=== PATIENT | female | born 1955 | race Caucasian/White ===

== ENCOUNTER → 2023-11-03 13:52 | Outpatient (REF) | payer MEDICARE, BC, SELFPAY | LOC: DHCBC HW 13:52 | PROVIDERS: ATTENDING PHYSICIAN Internal Medicine Cardiovascular Disease; FAMILY PHYSICIAN Internal Medicine | DX: R00.2 Palpitations (principal); I10 Essential (primary) hypertension | CPT/HCPCS: 93306 ==

== ENCOUNTER → 2023-11-08 14:45 | Outpatient (REF) | payer MEDICARE, BC, SELFPAY | LOC: HWRAD 14:45 | PROVIDERS: ATTENDING PHYSICIAN Internal Medicine | DX: R10.12 Left upper quadrant pain (principal) | CPT/HCPCS: 74177; Q9967 ==

== ENCOUNTER 2023-12-06 21:15 | Emergency (ER) | payer MEDICARE, BC, SELFPAY ==
[2023-12-06 21:16] VITALS: BP 113/95
[2023-12-06 21:31] LABS: % Basophils 0.5 % (0-2); % Immature Granulocytes 0.3 % (0-0.5); % Lymphocytes 26.3 % (20.5-51.1); % Monocytes 12.2 % (1.7-9.3); % Neutrophils 60.7 % (42.2-75.2); Absolute Basophils 0.1 10^3/uL (0-0.2); Absolute Lymphocytes 2.4 10^3/uL (1.2-3.4); Absolute Monocytes 1.1 10^3/uL (0.1-0.6); Absolute Neutrophils 5.6 10^3/uL (1.4-6.5); Hematocrit 40.6 % (37.0-47.0); Hemoglobin 13.5 g/dL (12.0-16.0); Mean Corp Hgb Conc. 33.3 g/dL (33.0-37.0); Mean Corpuscular Hgb 28.2 pg (27.0-31.0); Mean Corpuscular Volume 84.8 fL (81.0-99.0); Mean Platelet Volume 9.8 fL (7.4-10.4); Nucleated Red Blood Cells % 0 %; Platelet Count 356 10^3/uL (130-400); Red Blood Cell Count 4.79 10^6/uL (4.20-5.40); Red Cell Dist. Width 14.3 % (11.5-14.5); White Blood Cell Count 9.3 10^3/uL (4.8-10.8)
[2023-12-06 21:57] LABS: ALT (SGPT) 17 U/L (0-35); AST (SGOT) 23 U/L (14-36); Albumin 4.3 g/dl (3.5-5.0); Alkaline Phosphatase 99 U/L (38-126); Blood Urea Nitrogen 28 mg/dl (7-17); Calcium 9.8 mg/dl (8.4-10.2); Carbon Dioxide 24 mmol/L (22-30); Chloride 102 mmol/L (98-107); Glucose 119 mg/dl (70-99); Lipase 252 U/L (23-300); Sodium 134 mmol/L (135-145); Total Bilirubin 0.4 mg/dl (0.2-1.3); Total Protein 7.1 g/dl (6.3-8.2); eGFR > 60.00
--- NOTE | 2023-12-06 22:19 | ED.GENMED ---
History of Present Illness
General
Chief Complaint: Flank Pain
Source: patient
Exam Limitations: none
Time Seen by Provider: 12/06/23 21:59
Travel History
Have you had any contact with someone who has COVID-19?: No
Do you have any symptoms of coronavirus? Fever > 100 degrees, chills, cough, shortness of breath, sore throat, loss of taste or smell, muscle aches, or headache?: No
History of Present Illness
History of Present Illness:
This is a 68 year old female that comes in with c/o right flank pain. States that she started at 7:45 with pain. States that at first she had this pinching when she urinated. Then about 20-30 min later she started with right flank pain. States that
the pain was severe. State that she was nauseated and had diarrhea over the weekend. Denies any fever, chills, chest pain, SOB, abd pain, vomiting, headache, dizziness, urinary burning.
Past History
Past History
ED Past Medical History: Cancer (Ovarian Cancer), HTN, Hypercholesterolemia and Other (Renal calculus, Spinal stenosis, Diverticulitis, Esophageal strictures, Goiter, )
ED Past Surgical History: (X 2), Gynecological (Total hysterectomy), Orthopedic (Jimbo carpal tunnel) and Other (Left Cataract)
Social History
Tobacco: Former smoker
Alcohol: Occasional
Drug: None
Personal:
Living: with family
Review of Systems
Review of Systems
All Other Systems: ROS reviewed and negative except as documented in HPI and ROS
Constitutional: Reports no symptoms; Denies fever or chills
EENT: Reports no symptoms
Respiratory: Reports no symptoms; Denies cough or trouble breathing
Cardiac: Reports no symptoms; Denies chest pain
ABD/GI: Reports nausea; Denies abdominal pain, vomiting or diarrhea
: Reports flank pain (Right sided); Denies dysuria, frequency or urgency
Skin: Reports no symptoms
Neurological: Reports no symptoms; Denies dizzy or headache
Psychiatric: Reports no symptoms
Phy Exam
General Physical Exam
General Presentation: no apparent distress
General age: appears stated age
General Skin: warm and dry
General Habitus: normal
General Mental: alert
General Hydration: appears well hydrated
ENT Exam
ENT Exam: TM's normal, pharynx normal and neck supple
Eye Exam
Eye Exam: EOMI
Cardiovascular Exam
Cardiovascular Exam: regular rate/rhythm, no edema, no murmur and normal peripheral pulses
Pulmonary Exam
Pulmonary Exam: lungs clear, no respiratory distress, no rales, chest non tender, no crackles, no rhonchi, no wheezing and no cough
Gastrointestinal Exam
Gastrointestinal Exam: normal bowel sounds, non tender, soft, no organomegaly, no pulsatile mass, non distended and cva tenderness (Slight right sided)
Musculoskeletal Exam
Musculoskeletal Exam: full ROM and no edema
Skin Exam
Skin Exam: normal color, warm/dry, no rash and no petechia
Psychiatric Exam
Psychiatric Exam: normal mood/affect
Course
Orders/Labs/Results
Orders:
Orders
12/06/23 21:23
CBC/With Diff [Complete Blood Count/With Diff] Urgent
CMP [Comprehensive Metabolic Panel] Urgent
Lipase Urgent
12/06/23 22:18
CT Abd/pel Without Iv Or Oral Urgent
Comment:
Reason For Exam: Right flank pain
0.9% Sodium Chloride 1000 ml [Nss] 1,000 ml IV BOLUS
Ketorolac [Toradol] 30 mg IV NOW STA
Ondansetron Injectable [Zofran] 4 mg IV NOW STA
12/06/23 22:38
Urinalysis Reflex To Culture Urgent
Date Specimen was Collected: 12/06/23
Time Specimen was Collected: 22:37
Urine Microscopic Reflex Cult Urgent
Urine Culture Urgent
ELYSE Source: U
Specimen Description:
Date Specimen was Collected: 12/06/23
Time Specimen was Collected: 22:37
Abnormal Lab Results
12/06/23 12/06/23
21:23 22:38
Absolute Monos (auto) 1.1 H 10^3/uL
(0.1-0.6)
Monocytes % 12.2 H %
(1.7-9.3)
Sodium 134 L mmol/L
(135-145)
BUN 28 H mg/dl
(7-17)
Glucose 119 H mg/dl
(70-99)
Ur Occult Blood Reflex 2+ A
(Negative)
Urine Bilirubin 1+ A
(Negative)
Leukocyte Esterase Rfl 1+ A
(Negative)
Urine RBC 11-15 A /HPF
(0-2)
Urine Bacteria (Reflex) Moderate A
(Negative)
12/06/23 21:23
12/06/23 21:23
Dehydration, Glucose nonfasting. Lipase normal at 252, Urine negative for infection.
Vital Signs
Initial and Last Documented VS:
Initial Vital Signs
Temp Pulse Resp BP Pulse Ox
98.1 F 80 18 113/95 99
12/06/23 21:16 12/06/23 21:16 12/06/23 21:16 12/06/23 21:16 12/06/23 21:16
Last Documented Vital Signs
Temp Pulse Resp BP Pulse Ox
98.1 F 82 19 179/99 97
12/06/23 21:16 12/06/23 23:45 12/06/23 23:45 12/06/23 23:45 12/06/23 23:45
MDM/Problems Addressed
Differential Diagnosis Includes:
Renal calculus, UTI,
MDM/Problems Addressed:
This is a 68 year old female that comes in with c/o right flank pain. States that she has pinching with urination at first and then 20-30 min later she started with right flank pain.
Will get labs. CT scan, Give IV fluids and pain medication.
Back into see patient. Explained that there is a 2mm stone that is almost to the bladder. Encourage patient to increase her water intake to 8-8oz glasses daily. Will have patient use Tylenol or ibuprofen for pain. Strain her urine and will also sent
prescription to her pharmacy. Patient to follow up with the urologist in 5-7 days. Return with increased or changing pain or fever.
Chronic conditions affecting care:
Renal calculus,
Acute Exacerbation and/or Progression of Chronic Illness:
Renal calculus
*Radiology
Radiology exam reviewed: radiology read reviewed (CT night hawk- 2mm obstructing right distal ureteral stone, just above the level of the bladder, with associated mild right hydroureteronephrosis and subtle perinephric/periureteral fat stranding.
Correlate for superimposed infection. One additional nonobstructing left renal stone. Decompressed ) and all reviewed NAD by ED Provider (CT cont- decompressed bladder. Hysterectomy. Colonic diverticulosis. NO acute bowel patholgy. Small umbilical
herniation of fat. Scattered atheromatous disease. Coronary artery calcifications. Degenerative changes of the spine and left hip joint. Several left hip joint bodies. )
*Pulse Oximetry
Patient hypoxic: no
*EKG
Interpreted by ED Provider?: NA
Rate: EKG- N/A
*Lawn Mower Sharpener Interpretation
Rate: Lawn Mower Sharpener- N/A
*Critical Care Note
Total Time (30-74mins, 75-104mins- exclusive of procedures): Not Applicable
ED Attending Note
-
Portions of this chart may have been created with voice recognition software.� Occasional wrong word or��sound alike� substitutions may have occurred due to the inherent limitations of voice recognition software.
Discharge Plan
Departure
Patient Disposition: Home (Routine Discharge)
Date of Disposition: 12/07/23
Time of Disposition: 00:39
Patient with high blood pressure during this ER visit?: Yes
Condition: Good
Covid-19: Not Applicable
Discharge Problem:
Renal calculus, right
Instructions: Renal Colic (DC), How to Strain Your Urine, BLOOD PRESSURE
Prescriptions:
New
tamsulosin [Flomax] 0.4 mg capsule
0.4 mg PO HS Qty: 5 0RF
ondansetron 4 mg tablet,disintegrating
4 mg PO Q8H PRN (Reason: nausea and vomiting) Qty: 7 0RF
No Action
pantoprazole 40 MG tablet,delayed release (DR/EC)
40 mg PO DAILY
rosuvastatin 5 MG tablet
5 mg PO QPM
nebivolol 10 MG tablet
40 mg PO DAILY
aliskiren-hydrochlorothiazide [Tekturna HCT] 1 EACH tablet
1 tab PO DAILY
latanoprostene bunod [Vyzulta] 5 ML drops
5 ml OP HS
amoxicillin-pot clavulanate 1 TABLET tablet
1 tab PO Q12 Qty: 19 0RF
Referrals:
Roula Armstrong DO [Family Provider] -
Activity Restrictions/Additional Instructions:
As discussed, your blood work shows that you are dehydrated. Please increase your water intake to 8-8oz glasses daily. Your CT shows that you have a 2mm stone that is just at the bladder. You have had 2 prescriptions sent to your Pharmacy. The
first is Zofran to help with any nausea, vomiting. The second is Flomax that will help relax the smooth muscle so you can pass the stone. Please strain your urine. Follow up with the Urologist in the next 5-7 days. You may use Tylenol 1000mg every 6
hours for pain and alternate with ibuprofen 600mg every 6 hours with food for pain. IF YOU HAVE INCREASED OR CHANGING PAIN, FEVER, OR YOU HAVE ANY OTHER CONCERNS PLEASE RETURN TO THE EMERGENCY ROOM
Interventions
Interventions:
*Risk Screen - Suicide Last Done: 12/06/23 22:23
*General Assessment Last Done: 12/06/23 22:23
*Neglect/Abuse Screening Last Done: 12/06/23 22:23
ED- Fall Risk Assessment Last Done: 12/06/23 22:25
*ED COVID-19 Vaccine History Last Done: 12/06/23 22:23
RM-Ejuylv-Pbynvizgkm Assessment Last Done: 12/06/23 22:24
ED-Female Genitourinary Assessment Last Done: 12/06/23 22:24
[2023-12-06 22:23] VITALS: BMI 39.6
[2023-12-06] MEDS: NSS 1000 IV (22:31)
[2023-12-06] MEDS: TORADOL 30 MG IV (22:31)
[2023-12-06] MEDS: ZOFRAN 4 MG IV (22:31)
[2023-12-06 22:35] VITALS: BP 189/90
[2023-12-06 22:45] LABS: Urine Albumin Negative (Neg - Trace); Urine Bilirubin 1+ (Negative); Urine Character Slightly Cloudy (Clear); Urine Color Yellow; Urine Glucose Negative (Negative); Urine Ketone Negative (Negative); Urine Leukocyte 1+ (Negative); Urine Nitrite Negative (Negative); Urine Occult Blood 2+ (Negative); Urine Specific Gravity 1.025 (<1.030); Urine Urobilinogen Negative (Neg - 1+)
[2023-12-06 22:55] LABS: Urine Bacteria Moderate (Negative); Urine Calcium Oxalate Crystals Present; Urine Mucus Few
[2023-12-06 23:45] VITALS: BP 179/99
[2023-12-07] MEDS: FLOMAX 0.400000000000000022 MG PO (00:47)
[2023-12-07 00:58] VITALS: BP 166/70
== END 2023-12-07 01:00 | disposition home or self-care (01) ==
LOC: EMR 21:15
PROVIDERS: Clinical Nurse Specialist Family Health; Emergency Medicine; EMERGENCY PHYSICIAN Emergency Medicine; FAMILY PHYSICIAN Internal Medicine
DX: N13.2 Hydronephrosis with renal and ureteral calculous obstruction (principal); R03.0 Elevated blood-pressure reading, without diagnosis of hypertension
CPT/HCPCS: 99284; 96374; 96375; 74176; 80053; 81003; 81015; 83690; 85025; 87086

== ENCOUNTER → 2023-12-22 14:20 | Outpatient (REF) | payer MEDICARE, BC, SELFPAY | LOC: HWRAD 14:20 | PROVIDERS: ATTENDING PHYSICIAN Anesthesiology; FAMILY PHYSICIAN Internal Medicine | DX: M16.12 Unilateral primary osteoarthritis, left hip (principal) | CPT/HCPCS: 73502 ==

== ENCOUNTER → 2024-04-13 09:46 | Outpatient (REF) | payer MEDICARE, BC, SELFPAY | LOC: HWWDC 09:46 | PROVIDERS: ATTENDING PHYSICIAN Internal Medicine | DX: Z12.31 Encounter for screening mammogram for malignant neoplasm of breast (principal) | CPT/HCPCS: 77063; 77067 ==

== ENCOUNTER → 2025-01-11 12:11 | Outpatient (REF) | payer MEDICARE, BC, SELFPAY | LOC: HWRAD 12:11 | PROVIDERS: ATTENDING PHYSICIAN Nurse Practitioner Family; FAMILY PHYSICIAN Internal Medicine | DX: E04.2 Nontoxic multinodular goiter (principal) | CPT/HCPCS: 76536 ==

== ENCOUNTER → 2025-02-18 06:38 | Outpatient (REF) | payer MEDICARE, BC, SELFPAY | LOC: RAD 06:38 | PROVIDERS: ATTENDING PHYSICIAN Nurse Practitioner Family; FAMILY PHYSICIAN Internal Medicine | DX: E05.90 Thyrotoxicosis, unspecified without thyrotoxic crisis or storm (principal) | CPT/HCPCS: 78014; A9516 ==

== ENCOUNTER → 2025-04-17 08:49 | Outpatient (REF) | payer MEDICARE, BC, SELFPAY | LOC: HWWDC 08:49 | PROVIDERS: ATTENDING PHYSICIAN Obstetrics & Gynecology; FAMILY PHYSICIAN Internal Medicine | DX: Z12.31 Encounter for screening mammogram for malignant neoplasm of breast (principal); M81.0 Age-related osteoporosis without current pathological fracture | CPT/HCPCS: 77063; 77067; 77080 ==